=== PATIENT | male | born 1975 | race African-American/Black ===

== ENCOUNTER 2020-02-07 21:07 | Emergency (ER) | payer MEDICAID ==
[~2020-02-07] VITALS: Ht 172.7 cm; Wt 100.0 kg
[2020-02-07 21:17] VITALS: BP 125/110
[2020-02-07 23:03] LABS: GLUCOSE,POINT OF CARE 88 MG/DL (70-110)
== END 2020-02-07 21:18 | disposition left against medical advice (07) ==
LOC: EMS 21:07
DX: Z76.0 Encounter for issue of repeat prescription (principal); Z53.21 Procedure and treatment not carried out due to patient leaving prior to being seen by health care provider

== ENCOUNTER 2021-02-02 06:15 | Emergency (ER) | payer MEDICAID ==
[~2021-02-02] VITALS: Ht 172.7 cm; Wt 106.8 kg
[2021-02-02 06:30] VITALS: BP 127/74
== END 2021-02-02 06:39 | disposition home or self-care (01) ==
LOC: EMS 06:16
DX: H60.92 Unspecified otitis externa, left ear (principal); F15.10 Other stimulant abuse, uncomplicated; R05 Cough; F17.210 Nicotine dependence, cigarettes, uncomplicated; F14.90 Cocaine use, unspecified, uncomplicated; F13.10 Sedative, hypnotic or anxiolytic abuse, uncomplicated; F12.90 Cannabis use, unspecified, uncomplicated
CPT/HCPCS: 99283